=== PATIENT | female | born 1995 | race Caucasian/White ===

== ENCOUNTER 2021-02-15 13:24 | Outpatient (CLI) | payer OTHER, SELFPAY ==
[2021-02-15 14:14] LABS: Beta HCG Quantitative < 2.39 mIU/ML
== END 2021-02-15 13:25 | disposition home or self-care (01) ==
PROVIDERS: PCP Obstetrics & Gynecology Gynecology; Visit Provider Obstetrics & Gynecology Gynecology
DX: N91.2 Amenorrhea, unspecified (principal)
CPT/HCPCS: 36415; 84702

== ENCOUNTER 2021-07-11 10:17 | Outpatient (RCR) | payer OTHER, SELFPAY ==
[2021-07-11] MEDS: RHO(D) IMMUNE GLOBULIN 300 MCG/2 ML SYRINGE IM (17:20)
== END 2021-10-08 23:59 | disposition home or self-care (01) ==
LOC: ANHLAB 10:17
PROVIDERS: PCP Obstetrics & Gynecology Gynecology; Visit Provider Obstetrics & Gynecology Gynecology
DX: Z29.13 Encounter for prophylactic Rho(D) immune globulin (principal); O36.0190 Maternal care for anti-D [Rh] antibodies, unspecified trimester, not applicable or unspecified; Z3A.00 Weeks of gestation of pregnancy not specified
CPT/HCPCS: 36415; 85461; 90384; 96372; J2790

== ENCOUNTER 2021-09-19 14:14 | Outpatient (RCR) | payer OTHER, SELFPAY ==
[2021-09-18 10:05] LABS: Hematocrit 37.2 % (37.0-47.0); Hemoglobin 12.9 g/dL (12.0-15.0)
[2021-09-18 10:16] LABS: Glucose 1 Hour PP 50gm Dose 109 mg/dL
[2021-09-18 10:58] LABS: HIV 1/2 Ab P24 Ag Result Negative (Negative)
[2021-09-18 12:02] LABS: Vitamin D 25 Hydroxy 69.6 ng/mL
[2021-09-19] MEDS: RHO(D) IMMUNE GLOBULIN 300 MCG/2 ML SYRINGE IM (09:38)
== END 2021-09-19 15:00 | disposition home or self-care (01) ==
LOC: ANHLAB 14:14
PROVIDERS: PCP Obstetrics & Gynecology Gynecology; Visit Provider Nurse Practitioner
DX: Z11.4 Encounter for screening for human immunodeficiency virus [HIV] (principal); Z29.13 Encounter for prophylactic Rho(D) immune globulin; O36.0190 Maternal care for anti-D [Rh] antibodies, unspecified trimester, not applicable or unspecified; Z3A.00 Weeks of gestation of pregnancy not specified
CPT/HCPCS: 36415; 82306; 82947; 85014; 85018; 85461; 86703; 86880; 86902; 90384; 96372; G0432; J2790

== ENCOUNTER 2021-11-19 12:40 | Observation (INO) | payer OTHER, SELFPAY ==
[2021-11-19] VITALS (33 sets, daily range): BP systolic 104–134; BP diastolic 66–89; PULSE 95–122; TEMP 37.1; O2SAT 94–100; BMI 33.1
--- NOTE | 2021-11-19 12:40 | PC.NURSE ---
Pt came to desk stating she is afraid she might have COVID. Placed in droplet isolation as a PUI for COVID.
--- NOTE | 2021-11-19 13:25 | PC.NURSE ---
Dr. Michaels informed of pt's c/o sneezing and runny nose yesterday that progressed to a headache before bed and N&V through the night. Pt also c/o resting heart rate at 120 at times- currently 110-120, afebrile, and BP 134/89. Orders received.
[2021-11-19] MEDS: ONDANSETRON HCL ODT 4 MG TABLET PO (13:47)
--- NOTE | 2021-11-19 13:50 | OBADM ---
This patient, Yin Alfaro, admitted to the OB room 115 for observation. Patient/family oriented to hospital policies and general routines including ID bracelet, bed and alarms, visiting hours, pain management, procedures, bathroom and other care routines, personal items, smoking policy, room service/diet, and visiting hours. Patient/Family are encouraged to report perceived risks to care and to ask questions if they do not understand what they are told or what they should do.
[2021-11-19 13:53] LABS: Basophils Percent Auto 0.3 % (0.2-1.2); Eosinophils Percent Auto 0.3 % (0-4.4); Hematocrit 32.3 % (37.0-47.0); Hemoglobin 11.6 g/dL (12.0-15.0); Immature Granulocyte Percent A 0.9 % (0-0.5); Lymphocytes Absolute Auto 1.05 K/mm3 (0.9-3.2); Lymphocytes Percent Auto 9.7 % (18.3-44.2); Mean Corpuscular HGB Conc 35.9 g/dl (32-36); Mean Platelet Volume 11.2 fl (7.4-10.4); Monocytes Absolute Auto 0.9 K/mm3 (0.1-0.6); Monocytes Percent Auto 7.9 % (2.6-8.5); Neutrophils Absolute Auto 8.8 K/mm3 (1.3-6.7); Neutrophils Percent Auto 80.9 % (45.5-73.1); Platelet Count Result 170 k/mm3 (150-375); Red Blood Count 3.63 M/mm3 (4.2-5.4); Red Cell Distribution Width 12.5 % (11.5-14.5); White Blood Count 10.9 K/mm3 (4.5-10.0)
[2021-11-19 14:04] LABS: Alanine Aminotransferase 15 U/L (6-35); Albumin Level 3.5 g/dL (3.5-5.1); Alkaline Phosphatase 111 U/L (38-126); Anion Gap 10 mmol/L (8-16); Aspartate Amino Transferase 19 U/L (14-36); Bilirubin,Total 0.6 mg/dL (0.2-1.3); Blood Urea Nitrogen 6 mg/dL (7-17); Carbon Dioxide 19 mmol/L (22-30); Chloride 104 mmol/L (98-107); Estimated Glomerular Filt Rate > 60; Glucose 102 mg/dL (65-110); Potassium 3.5 mmol/L (3.4-5.0); Sodium 133 mmol/L (137-145)
[2021-11-19 14:29] LABS: SARS-CoV-2 RNA PCR Negative
[2021-11-19 14:31] LABS: Appearance Urine Clear (Clear); Bilirubin Urine Negative (Negative); Color Urine Yellow (Yellow); Glucose Urine UA Negative (Negative); Ketones Urine Negative (Negative); Leukocyte Esterase Ur Negative LEU/UL (Negative); Nitrate Urine Negative (Negative); Protein Urine Negative (Negative); Specific Grav Ur 1.015 (1.001-1.035); Urobilinogen Urine 0.2 mg/dL (<2.0)
[2021-11-19 14:33] LABS: Total Protein Urine Random 14 mg/dL; Ur Ttl Prot Creatinine Ratio 0.21 mg/mg (0-0.20)
[2021-11-19 14:36] LABS: Bacteria Urine Trace /hpf; Mucus Urine Rare /lpf; RBC Urine 0-2 /hpf (0-2); Squamous Epithelial Cell Urine Few /hpf (Few); WBC Urine 0-3 /hpf
[2021-11-19 14:39] LABS: Add Urine Microscopic? YES; Blood Urine Trace-Intact (Negative)
[2021-11-19] MEDS: ACETAMINOPHEN 500 MG TABLET 1000 MG PO (15:28)
--- NOTE | 2021-11-25 08:29 | PM.OBTRLD ---
OB - Triage/Final Diagnosis Visit Information Reason for evaluation: other (nausea, vomiting, dehydration) Comments/Additional reasons for admission: I have assessed the risk for this patient, Yin Alfaro, and determined that she would benefit from observation care. Evaluation Laboratory results: Laboratory Tests 11/19/21 11/19/21 11/19/21 13:42 13:42 13:42 WBC 10.9 H RBC 3.63 L Hgb 11.6 L Hct 32.3 L MCV 89.0 MCH 32.0 MCHC 35.9 RDW 12.5 Plt Count 170 MPV 11.2 H Immature Gran % (Auto) 0.9 H Neut % (Auto) 80.9 H Lymph % (Auto) 9.7 L [place] % (Auto) 7.9 Eos % (Auto) 0.3 Baso % (Auto) 0.3 Lymph # (Auto) 1.05 [place] # (Auto) 0.9 H Eos # (Auto) 0.0 Baso # (Auto) 0.0 Abs Immat Gran (auto) 0.10 H Absolute Neuts (auto) 8.8 H Absolute Nucleated RBC 0.0 Nucleated RBC % 0.0 Sodium Potassium Chloride Carbon Dioxide Anion Gap BUN Creatinine Estim Creat Clear Calc Estimated GFR Glucose Uric Acid Calcium Total Bilirubin AST ALT Alkaline Phosphatase Total Protein Albumin Urine Color Yellow Urine Appearance Clear Urine pH 7.0 Ur Specific [place] 1.015 Urine Protein Negative Urine Glucose (UA) Negative Urine Ketones Negative Ur Blood (Man) Trace-intact Urine Nitrate Negative Urine Bilirubin Negative Urine Urobilinogen 0.2 Leukocyte Esterase Rfl Negative Urine RBC 0-2 Urine WBC 0-3 Ur Squamous Epith Cells Few Urine Bacteria Trace Urine Mucus Rare U Random Total Protein 14 Urine Creatinine 68.0 Protein/Creat Ratio 2 0.21 H SARS-CoV-2 RNA (RT-PCR) 11/19/21 11/19/21 13:42 13:42 WBC RBC Hgb Hct MCV MCH MCHC RDW Plt Count MPV Immature Gran % (Auto) Neut % (Auto) Lymph % (Auto) [place] % (Auto) Eos % (Auto) Baso % (Auto) Lymph # (Auto) [place] # (Auto) Eos # (Auto) Baso # (Auto) Abs Immat Gran (auto) Absolute Neuts (auto) Absolute Nucleated RBC Nucleated RBC % Sodium 133 L Potassium 3.5 Chloride 104 Carbon Dioxide 19 L Anion Gap 10 BUN 6 L Creatinine 0.60 L Estim Creat Clear Calc Not Reportable Estimated GFR > 60 Glucose 102 Uric Acid 5.0 Calcium 9.0 Total Bilirubin 0.6 AST 19 ALT 15 Alkaline Phosphatase 111 Total Protein 7.0 Albumin 3.5 Urine Color Urine Appearance Urine pH Ur Specific [place] Urine Protein Urine Glucose (UA) Urine Ketones Ur Blood (Man) Urine Nitrate Urine Bilirubin Urine Urobilinogen Leukocyte Esterase Rfl Urine RBC Urine WBC Ur Squamous Epith Cells Urine Bacteria Urine Mucus U Random Total Protein Urine Creatinine Protein/Creat Ratio 2 SARS-CoV-2 RNA (RT-PCR) Negative
== END 2021-11-19 15:59 | disposition home or self-care (01) ==
PROVIDERS: Admitting Provider Obstetrics & Gynecology Gynecology; PCP Family Medicine; Visit Provider Obstetrics & Gynecology Gynecology
DX: O99.283 Endocrine, nutritional and metabolic diseases complicating pregnancy, third trimester (principal); O21.9 Vomiting of pregnancy, unspecified; E86.0 Dehydration; Z3A.34 34 weeks gestation of pregnancy; Z20.822 Contact with and (suspected) exposure to COVID-19
CPT/HCPCS: 36415; 80053; 81001; 82570; 84156; 84550; 85025; A9270; C9803; G0378; G0379; U0003; U0005

== ENCOUNTER 2021-11-20 16:12 | Outpatient (CLI) | payer OTHER, SELFPAY ==
[2021-11-20 16:27] VITALS: BMI 33.6
[2021-11-20 17:44] LABS: Collection Time Urine 24 HOURS
[2021-11-20 17:45] LABS: Total Volume 24 Hour Urine 1700 ml
[2021-11-20 17:46] LABS: Patient Weight 208 Lbs; Total Volume 24 Hour Urine 1700 ml
[2021-11-20 17:54] LABS: Creatinine Clearance Urine 161.6 ml/min (75-125); Creatinine Urine 96.2 mg/dL; Total Protein Urine 24 Hr 289 mg/24hr (28-141); Total Protein Urine Random 17 mg/dL
== END 2021-11-20 16:13 | disposition home or self-care (01) ==
LOC: ANHOBOP 16:25
PROVIDERS: PCP Family Medicine; Visit Provider Obstetrics & Gynecology Gynecology
DX: O13.9 Gestational [pregnancy-induced] hypertension without significant proteinuria, unspecified trimester (principal); Z3A.00 Weeks of gestation of pregnancy not specified
CPT/HCPCS: 81050; 82575; 84156

== ENCOUNTER → 2021-11-27 13:32 | Outpatient (CLI) | payer OTHER, SELFPAY ==
--- NOTE | ~2021-11-27 | US_ITS ---
EXAMINATION: US OB follow up, US umbilical doppler DATE: 11/27/2021 14:07 INDICATION: Preeclampsia during third trimester TECHNIQUE: Real-time ultrasound of the pelvis was performed. The interpreting radiologist was not pre sent for the study. COMPARISON: None. FINDINGS: There is a single living fetus in vertex presentation. The placenta is anterior. card iac activity and movement are noted. heart rate is 127 beats per minute (bpm). The amniot ic fluid index is 17.3 cm which is normal. Umbilical artery pulsed Doppler demonstrates peak systolic to end-diastolic velocity ratios (S/D rati os) of 2.4 and 3.2 near the fetus, 3.1 and 3.1 in the mid cord, and 2.9 and 3.0 near the placenta. The following biometric data were obtained: Biparietal diameter (BPD): 9.5 cm; head circumference (HC): 32.9 cm; abdominal circumference (AC): 33 .7 cm; femur length (FL): 7.3 cm. These measurements are concordant. Estimated weight is 3277 g +/- 491 g, which correlates with the 90th percentile when 12/25/2021 is used as estimated date of delivery. As single measurements, these parameters are each equal to the following estimated gestational ages w ith ranges of +/- 2 standard deviations: BPD: 38 weeks 4 days +/- 3 weeks 1 days. HC: 37 weeks 3 days +/- 2 weeks 5 days. AC: 37 weeks 5 days +/- 3 weeks 0 days. FL: 37 weeks 3 days +/- 3 weeks 1 days. estimated gestational age based solely on measurements from this exam is 37 weeks 6 days +/- 2 weeks 5 days. IMPRESSION: 1. Single living fetus in vertex presentation. 2. Normal amniotic fluid index. 3. Normal umbilical artery Doppler ratios. 4. Estimated weight is 3277 g +/- 491 g, which correlates with the 90th percentile when 12/26/19 is used as estimated date of delivery. Reviewed, dictated and finalized at location A. IMPRESSION: 1. Single living fetus in vertex presentation. 2. Normal amniotic fluid index. 3. Normal umbilical artery Doppler ratios. 4. Estimated weight is 3277 g +/- 491 g, which correlates with the 90th p ercentile when 12/25/2021 is used as estimated date of delivery.
== END ==
PROVIDERS: PCP Obstetrics & Gynecology Gynecology; Visit Provider Obstetrics & Gynecology Gynecology
DX: O14.03 Mild to moderate pre-eclampsia, third trimester (principal); Z3A.37 37 weeks gestation of pregnancy
CPT/HCPCS: 76816; 76820

== ENCOUNTER 2021-12-03 05:51 | Inpatient (IN) | payer OTHER, SELFPAY ==
[2021-12-03] VITALS (103 sets, daily range): BP systolic 103–172; BP diastolic 51–137; PULSE 66–254; TEMP 36.2–37.4; O2SAT 97–100; BMI 33.3
[2021-12-03 06:50] LABS: Basophils Percent Auto 0.2 % (0.2-1.2); Eosinophils Absolute Auto 0.1 K/mm3 (0-0.3); Eosinophils Percent Auto 1.2 % (0-4.4); Hematocrit 32.2 % (37.0-47.0); Hemoglobin 11.5 g/dL (12.0-15.0); Immature Granulocyte Absolute 0.12 K/mm3 (0.00-0.031); Immature Granulocyte Percent A 1.2 % (0-0.5); Lymphocytes Absolute Auto 1.73 K/mm3 (0.9-3.2); Lymphocytes Percent Auto 17.9 % (18.3-44.2); Mean Corpuscular HGB Conc 35.7 g/dl (32-36); Mean Corpuscular Hemoglobin 31.4 pg (26-34); Mean Platelet Volume 11.6 fl (7.4-10.4); Monocytes Absolute Auto 0.8 K/mm3 (0.1-0.6); Monocytes Percent Auto 7.9 % (2.6-8.5); Neutrophils Absolute Auto 6.9 K/mm3 (1.3-6.7); Neutrophils Percent Auto 71.6 % (45.5-73.1); Platelet Count Result 172 k/mm3 (150-375); Red Blood Count 3.66 M/mm3 (4.2-5.4); Red Cell Distribution Width 12.4 % (11.5-14.5); White Blood Count 9.6 K/mm3 (4.5-10.0)
--- NOTE | 2021-12-03 07:19 | LDADM ---
This patient, Yin Alfaro, was admitted to Labor/Delivery/Recovery 103 on 12/03/21 at 05:51. Plans for labor, pain management and were discussed with patient. Patient/family oriented to hospital policies and general routines including ID bracelet, bed and alarms, visiting hours, pain management, procedures, bathroom and other care routines, personal items, smoking policy, room service/diet and guest tray routines, infant security routines, and visiting hours. Patient/Family are encouraged to report perceived risks to care and to ask questions if they do not understand what they are told or what they should do. See OBIX for further documentation.
[2021-12-03] MEDS: miSOPROStol 25 MCG TABLET VAGINAL (07:41)
[2021-12-03 07:45] LABS: Alanine Aminotransferase 14 U/L (6-35); Albumin Level 3.5 g/dL (3.5-5.1); Alkaline Phosphatase 129 U/L (38-126); Anion Gap 8 mmol/L (8-16); Aspartate Amino Transferase 20 U/L (14-36); Bilirubin,Total 0.5 mg/dL (0.2-1.3); Blood Urea Nitrogen 8 mg/dL (7-17); Calcium 8.9 mg/dL (8.4-10.2); Carbon Dioxide 22 mmol/L (22-30); Chloride 108 mmol/L (98-107); Estimated CRCL calculation 142 ml/min; Estimated Glomerular Filt Rate > 60; Glucose 88 mg/dL (65-110); Potassium 3.7 mmol/L (3.4-5.0); Sodium 138 mmol/L (137-145); Uric Acid 5.7 mg/dL (2.5-7.5)
--- NOTE | 2021-12-03 07:50 | WPDOBADMIT ---
Obstetrics - Admit Note Admission Note: record reviewed. No pertinent additions to the history and/or any subsequent changes in the physical findings that are not consistent with the expected course of the were found. Additions to the history and/or subsequent changes in the physical findings follow. None.
--- NOTE | 2021-12-03 07:51 | PM.OBPNLAB ---
Pain Control Date/time seen: 12/03/21 07:51 Pain control: tolerating well Comments: Rarely bishnu. Pelvic Exam Comments: Chua score 3 per RN's exam. Contractions Monitor mode: External Contraction pattern: Irregular Contraction phase: Resting Status status: Category l Assessment and Plan Assessment: induction ongoing Plan: continuous present management Comments: Misoprostol placed recently by RN for cervical ripening. Discussed plan of care. Plan to evaluate for safety of AROM at next exam.
[2021-12-03] MEDS: LACTATED RINGERS 1,000 ML 125 ML IV CONT ×4 (11:36→21:57)
[2021-12-03] MEDS: OXYTOCIN 30 UNITS/NS 500 ML 30 UNITS/500 ML BAG 6 UNITS IV CONT (11:37)
[2021-12-03 12:10] LABS: Rapid Plasma Reagin Non-Reactive (NonReactive)
--- NOTE | 2021-12-03 12:11 | PM.OBPNLAB ---
Pain Control Date/time seen: 12/03/21 12:11 Pain control: tolerating well Pelvic Exam Dilation (cm): 3 Effacement (%): 75 station: -2 Amniotic membrane status: Intact Comments: AROM Contractions Monitor mode: External Contraction frequency: 3 (2-5, irregular pattern) Contraction pattern: Irregular Contraction phase: Resting Contraction intensity: Moderate Status status: Category l Assessment and Plan Assessment: induction ongoing Plan: continuous present management Comments: Discussed plan of care with patient and her partner. Amniotomy risks and benefits discussed. Patient is agreeable to proceeding with amniotomy. head very well applied to cervix. AROM performed with return of small amount of clear fluid. Plan to increase Pitocin as needed to achieve adequate contraction pattern. Yin is tolerating early labor very well, and only has minimal cramps at this point. She plans an epidural at some point for pain relief during labor. Anticipate vaginal .
[2021-12-03 12:42] LABS: HIV 1/2 Ab P24 Ag Result Negative (Negative)
--- NOTE | 2021-12-03 14:44 | WPDANESEPP ---
Anes - Eval Pre Procedure Procedure: Labor Epidural Date/Time: 12/03/21 14:44 Surgeon: Xenia Pre Op Diagnosis: IOL Patient Data Age: 26 Gender: F Height: 1.69 m Weight: 95 kg Last Vital Signs Temp 36.2 C L 12/03/21 14:00 Pulse 85 12/03/21 14:30 BP 125/87 12/03/21 14:30 Pulse Ox 98 12/03/21 14:43 O2 Del Method Room Air 12/03/21 07:17 Allergies Allergy/AdvReac Type Severity Reaction Status Date / Time No Known Allergies Allergy Verified 11/19/21 13:44 Home Medications Medication Instructions Recorded Confirmed Type ergocalciferol (vitamin D2) 1,250 50,000 unit PO WEEKLY 11/19/21 12/03/21 History mcg (50,000 unit) capsule metoclopramide HCl 10 mg tablet 10 mg PO Q6H PRN Nausea 11/19/21 12/03/21 History vit no.95-ferrous 1 tablet PO DAILY 11/19/21 12/03/21 History fumarate 28 mg-folic acid 800 mcg tablet () calcium-magnesium 750 mg-465 mg tablet PO 12/02/21 History tablet Laboratory Tests 12/03/21 12/03/21 12/03/21 06:31 06:31 06:31 WBC 9.6 K/mm3 K/mm3 (4.5-10.0) RBC 3.66 M/mm3 L M/mm3 (4.2-5.4) Hgb 11.5 g/dL L g/dL (12.0-15.0) Hct 32.2 % L % (37.0-47.0) MCV 88.0 fl fl (80-100) MCH 31.4 pg pg (26-34) MCHC 35.7 g/dl g/dl (32-36) RDW 12.4 % % (11.5-14.5) Plt Count 172 k/mm3 k/mm3 (150-375) MPV 11.6 fl H fl (7.4-10.4) Immature Gran % (Auto) 1.2 % H % (0-0.5) Neut % (Auto) 71.6 % % (45.5-73.1) Lymph % (Auto) 17.9 % L % (18.3-44.2) [place] % (Auto) 7.9 % % (2.6-8.5) Eos % (Auto) 1.2 % % (0-4.4) Baso % (Auto) 0.2 % % (0.2-1.2) Lymph # (Auto) 1.73 K/mm3 K/mm3 (0.9-3.2) [place] # (Auto) 0.8 K/mm3 H K/mm3 (0.1-0.6) Eos # (Auto) 0.1 K/mm3 K/mm3 (0-0.3) Baso # (Auto) 0.0 K/mm3 K/mm3 (0.0-0.1) Abs Immat Gran (auto) 0.12 K/mm3 H K/mm3 (0.00-0.031) Absolute Neuts (auto) 6.9 K/mm3 H K/mm3 (1.3-6.7) Absolute Nucleated RBC 0.0 K/mm3 K/mm3 (0.0-0.012) Nucleated RBC % 0.0 % % (0.0-0.2) Sodium Potassium Chloride Carbon Dioxide Anion Gap BUN Creatinine Estim Creat Clear Calc Estimated GFR Glucose Uric Acid Calcium Total Bilirubin AST ALT Alkaline Phosphatase Total Protein Albumin RPR Non-reactive (NonReactive) HIV 1&2 Ab/P24 Ag 4thGn Blood Type O Negative Antibody Screen Negative 12/03/21 12/03/21 07:12 11:35 WBC RBC Hgb Hct MCV MCH MCHC RDW Plt Count MPV Immature Gran % (Auto) Neut % (Auto) Lymph % (Auto) [place] % (Auto) Eos % (Auto) Baso % (Auto) Lymph # (Auto) [place] # (Auto) Eos # (Auto) Baso # (Auto) Abs Immat Gran (auto) Absolute Neuts (auto) Absolute Nucleated RBC Nucleated RBC % Sodium 138 mmol/L mmol/L (137-145) Potassium 3.7 mmol/L mmol/L (3.4-5.0) Chloride 108 mmol/L H mmol/L (98-107) Carbon Dioxide 22 mmol/L mmol/L (22-30) Anion Gap 8 mmol/L mmol/L (8-16) BUN 8 mg/dL mg/dL (7-17) Creatinine 0.60 mg/dL L mg/dL (0.7-1.0) Estim Creat Clear Calc 142 ml/min ml/min Estimated GFR > 60 (59 - ) Glucose 88 mg/dL mg/dL (65-110) Uric Acid 5.7 mg/dL mg/dL (2.5-7.5) Calcium 8.9 mg/dL mg/dL (8.4-10.2) Total Bilirubin 0.5 mg/dL mg/dL (0.2-1.3) AST 20 U/L U/L (14-36) ALT 14 U/
--- NOTE | 2021-12-03 17:18 | PM.OBPNLAB ---
Pain Control Date/time seen: 12/03/21 17:16 Pain control: tolerating well and epidural Pelvic Exam Comments: No exam at this time. Contractions Monitor mode: External Contraction frequency: 2 (2-5, irregular pattern) Contraction duration: 60 Contraction pattern: Regular Contraction phase: Resting Contraction intensity: Moderate Status status: Category l Assessment and Plan Pitocin rate (mU/min): 12 Assessment: induction ongoing Plan: continuous present management Comments: Yin is resting on her right side. Peanut ball between her knees. FHTs reassuring, ctx pattern regular. Discussed POC. If minimal cervical change with next exam, recommend IUPC. Anticipate vaginal .
[2021-12-03] MEDS: ONDANSETRON INJ 4 MG/2 ML VIAL IV PUSH (17:44)
--- NOTE | 2021-12-03 22:25 | PM.OBPNLAB ---
Pain Control Date/time seen: 12/03/21 22:25 Pain control: tolerating well and epidural Pelvic Exam Comments: Recent SVE by RN 9cm. Contractions Monitor mode: External Contraction pattern: Regular Status status: Category ll Assessment and Plan Comments: FHTs with prolonged deceleration. Pt repositioned with no resolution. Pitocin discontinued. Repositioned to hands and knees and FHTs returned to baseline with moderate variability. Yin remained on her hands and knees for about 20 minutes with RN and CNM present at pt's side continuously. Then repositioned to R tilt with L leg in stirrup. Feeling intermittent rectal pressure with contractions. Anticipate vaginal .
[2021-12-04] VITALS (12 sets, daily range): BP systolic 115–139; BP diastolic 64–92; PULSE 73–111; RESP 16–18; TEMP 36.4–37.1; O2SAT 97–98
--- NOTE | 2021-12-04 00:27 | PM.OBPRVD ---
OB - Delivery Note Procedure Delivery date: 12/03/21 Procedure: Events: Preeclampsia w/o severe features Induction method: Per Misoprostol Protocol Delivery augmentation: Rupture of Membranes and Pitocin Delivery monitor: External FHT, External Uterine and Internal Uterine Route of delivery: Episiotomy description: None Laceration Description: Vaginal (1st degree) Delivery repair: vicryl Specimen: Yes Quantitative Blood Loss (ml): 500 Anesthesia type: Epidural Disposition: Floor Baby Date of : 12/03/21 Time of : 23:57 Weeks of gestation at delivery: 36 (36w6d) Infant gender: Male Weight (pounds): 7 Weight (ounces): 12 presentation: vertex (Compound presentation) position: Left Occiput Anterior (with loose nuchal cord x1) Placenta delivery description: Spontaneous (trailing membranes) Cord Vessel Description: 3 Vessels score one minute: 7 score five minutes: 9 Narrative: Yin progressed to complete dilation and pushed very well with contractions. She brought the head to a crown. The head delivered in the LOUANN position and a compound presentation with the left hand/arm was noted. There was a loose nuchal cord. With the next pushing effort, she delivered the remainder of the infant. The infant was then placed skin to skin on the maternal abdomen. Delayed cord clamping x 60 seconds. The cord was then doubly clamped and cut.
--- NOTE | 2021-12-04 00:33 | PM.OBDSVD ---
DS: Admitting Diagnosis Discharge Date 12/05/21 Admitting Diagnosis IUP Preeclampsia Induction of labor DS: Discharge Diagnosis Discharge Diagnosis Plan OB - DS: Summary Hospital Course Hospital Course: Uncomplicated OB Procedures : None OB Procedures Intrapartum: Spontaneous Vag Delivery OB Procedures: : None Peripartum Data Delivery Method: Natural Vaginal Laceration Description: Vaginal - 1st Degree Episiotomy description: None complications: none Time Spent with Patient Time attestation: Total time spent providing and/or coordinating discharge services: DS: Data Data Completed and Pending Pending studies at discharge: Pending at discharge 12/03/21 08:11 Surgical [PTH] Routine Labs on day of discharge: Labs from last 24 hours 12/03/21 12/03/21 12/03/21 11:35 07:12 06:31 WBC RBC Hgb Hct MCV MCH MCHC RDW Plt Count MPV Immature Gran % (Auto) Neut % (Auto) Lymph % (Auto) [place] % (Auto) Eos % (Auto) Baso % (Auto) Lymph # (Auto) [place] # (Auto) Eos # (Auto) Baso # (Auto) Abs Immat Gran (auto) Absolute Neuts (auto) Absolute Nucleated RBC Nucleated RBC % Sodium 138 Potassium 3.7 Chloride 108 H Carbon Dioxide 22 Anion Gap 8 BUN 8 Creatinine 0.60 L Estim Creat Clear Calc 142 Estimated GFR > 60 Glucose 88 Uric Acid 5.7 Calcium 8.9 Total Bilirubin 0.5 AST 20 ALT 14 Alkaline Phosphatase 129 H Total Protein 7.0 Albumin 3.5 RPR HIV 1&2 Ab/P24 Ag 4thGn Negative Blood Type O Negative Antibody Screen Negative 12/03/21 12/03/21 06:31 06:31 WBC 9.6 RBC 3.66 L Hgb 11.5 L Hct 32.2 L MCV 88.0 MCH 31.4 MCHC 35.7 RDW 12.4 Plt Count 172 MPV 11.6 H Immature Gran % (Auto) 1.2 H Neut % (Auto) 71.6 Lymph % (Auto) 17.9 L [place] % (Auto) 7.9 Eos % (Auto) 1.2 Baso % (Auto) 0.2 Lymph # (Auto) 1.73 [place] # (Auto) 0.8 H Eos # (Auto) 0.1 Baso # (Auto) 0.0 Abs Immat Gran (auto) 0.12 H Absolute Neuts (auto) 6.9 H Absolute Nucleated RBC 0.0 Nucleated RBC % 0.0 Sodium Potassium Chloride Carbon Dioxide Anion Gap BUN Creatinine Estim Creat Clear Calc Estimated GFR Glucose Uric Acid Calcium Total Bilirubin AST ALT Alkaline Phosphatase Total Protein Albumin RPR Non-reactive HIV 1&2 Ab/P24 Ag 4thGn Blood Type Antibody Screen Discharge Plan Discharge Attending physician on discharge: Nuvia Michaels Consulting providers: Lou Schwab Discharging Clinician: Nuvia Michaels Anticipated Discharge Date/Time: 12/05/21 07:47 Patient Disposition: Home, Self-Care Activity: may shower and pelvic rest Diet: regular Discharge Instructions: Education: Mom and Baby Guide Given to: Mother Follow-Up: Call your delivering provider's office for an appointment to be seen in: 1 Week Mom and baby should come to the [facility] for the follow-up appointment. Appointment Date/Time: December 07, 2021 at 10:00 am What to expect at your follow-up visit: Blood Pressure Check Call [phone] if you are unable to keep your appointment time. BREAST CARE: * Wear a snug supportive bra. * For engorgement discomfort: Breast Feeding: * Apply warm moist washcloths * Express milk as needed to relieve engorgement * Wear loose clothing Bottle Feeding: * May apply ice packs * For sore nipples: * Identify correct latch-on * Apply warm moist washcloths before and after nursing * Air dry nipples after nursing * May apply Lansinoh cream to nipples PERINEAL CARE: * Until bleeding stops, use your sophy bottle after urinating * Change your pad frequently throughout the day * You may take sitz baths
[2021-12-04] MEDS: OXYTOCIN 30 UNITS/NS 500 ML 30 UNITS/500 ML BAG 125 UNITS IV CONT (00:45)
[2021-12-04] MEDS: IBUPROFEN 600 MG TABLET PO ×3 (01:52→19:11)
[2021-12-04] MEDS: WITCH HAZEL 40 PADS 1 PAD TOPICAL (01:53)
[2021-12-04] MEDS: BENZOCAINE 20% AER SPR (*SP) 56 GM CAN 1 SPRAY TOPICAL (01:53)
--- NOTE | 2021-12-04 02:55 | PC.NURSE ---
Patient transferred to post room #278 per wheelchair from labor and delivery. Support person present. Oriented to unit, room, information board, rooming in, admission packet and security measures. Patient verbalizes understanding.
--- NOTE | 2021-12-04 07:48 | P.PNOB_ITS ---
OB - PN: Subj Subjective Date/time seen: 12/04/21 07:48 Patient comments: pain well controlled [place] baby status: doing well ( fair. Using nipple shield. ) feeding status: exclusively breast feeding Narrative: Resting in bed. Alert and oriented, fatigued. Spouse present and supportive. Infant in nursery for peds assessment. OB - PN: Obj Data Labs CBC & Chem 7: 12/03/21 06:31 12/03/21 07:12 Labs: Laboratory Results - last 24 hr 12/03/21 12/03/21 12/03/21 06:31 06:31 11:35 RPR Non-reactive HIV 1&2 Ab/P24 Ag 4thGn Negative Blood Type O Negative Antibody Screen Negative OB - PN A/P Plan day: 1 Plan: routine care Comments: Begin breast pumping. Time Spent With Patient Time: Total time spent is greater than 50% in coordination of care (as documented) at patient's floor/unit and/or counseling patient: Review of Systems Review of Systems: All systems reviewed & are unremarkable except as noted in HPI and below Exam Narrative: Alert and oriented. Mood is pleasant and cooperative. Urinating without difficulty. Denies passing any large clots. Perineum with some edema but WNL. Const: General: no acute distress Orientation/consciousness: patient oriented x3 Limitations: no limitations Resp: Effort & Inspection: normal respiratory effort Auscultation: clear to auscultation bilaterally Cardio: Rate: regular rate GI: Inspection: normal to inspection Neuro: General: patient oriented x3 Extrem: General: normal to inspection Psych: Appearance: grossly normal Mental Status: mental status grossly normal Affect: normal affect Thought process: Normal thought process present
--- NOTE | 2021-12-04 08:46 | WPDANLDPN2 ---
Anes-Prog Note L&D Date/Time: 12/04/21 08:46 Comfortable throughout: labor and delivery Neuraxial method: epidural Epidural/Spinal procedure site: clean & non-tender Neuro status: Neuro function grossly intact. Cardiovascular status: normal Respiratory status: normal Airway patency: baseline Mental status: baseline Post-Op hydration status: normal Vital Signs: Last Vital Signs Temp 36.5 C 12/04/21 03:00 Pulse 73 12/04/21 03:00 Resp 18 12/04/21 03:00 BP 123/72 12/04/21 03:00 Pulse Ox 98 12/03/21 23:53 O2 Del Method Room Air 12/03/21 07:17 Pain score (VAS): 2 I/O: Intake & Output 12/03/21 12/04/21 12/04/21 23:59 07:59 15:59 Intake Total 1000 2000 Output Total 78 Balance 1000 1922 Patient feedback: Patient satisfied with anesthetic care.
[2021-12-04] MEDS: DOCUSATE SODIUM 100 MG CAPSULE PO (11:35)
[2021-12-04] MEDS: MULTIVIT/MIN/PREN/FOL AC/IRON TABLET 1 TAB PO (11:35)
--- NOTE | 2021-12-04 13:16 | PC.NURSE ---
0900 RN called to assist with patient while working with another patient. RN referred patient care back to the primary RN. [phone] RN reported that the patient called for assistance with her 36 6/7 EGA infant. Introductions were made, then consulted with patient to assess needs related to . Mother led the conversation with her?plans to feed?her and the?experience so far. Mother states she has used a nipple shield to latch infant to the breast. Infant is has bruising. Mother works well with her with encouragement. Encouraged understanding of the benefits of skin to skin (unwrapping infant and placing vertically on her chest), responsive feeding and how to watch for early feeding signs, frequency of feeding on demand about every 8-12 times in 24 hours (every 2-3 hours), milk production, duration of feeding, signs of adequate intake/output and how to record on the feeding sheet. Reviewed positioning and ear, shoulder, hip alignment, supporting the breast, asymmetrical latch (off-center), and leading with the chin with a big open side gape. latched optimally to the right breast in football position. Education given to mother of how to visualize suck/swallow ratios and listen for drinking at the breast. was able to maintain latch without discomfort to mother. Infant latched at 1256 and was demonstrating effective at 1307. Nipple care reviewed with optimal latch and good positioning. Resources used to facilitate learning were used with the tool for teaching latch, hand expression, and mom/baby guide. Mother voiced understanding of responsive feedings, stimulating with skin to skin, hand expressed colostrum, massage touch, breast compression, talking to to encourage if it has been 2 -3 hours since the start of the last , to call if infant does not latch, wake up to breastfeed or if there is discomfort with . Resources provided for inpatient and outpatient services using a resource guide and mom/baby guide. Mother voiced understanding of information and will call if there is a request for assistance. Reported to primary RN.
[2021-12-04 13:40] LABS: Hematocrit 26.3 % (37.0-47.0); Hemoglobin 9.5 g/dL (12.0-15.0)
[2021-12-05] VITALS: BP 116/80
[2021-12-05 04:30] VITALS: BP 122/86
--- NOTE | 2021-12-05 07:30 | PC.NURSE ---
PT introductions made and plan of care discussed per post ,pain management, bottle feeding, daily care activities and pending discharge to home. PT and significant other both recipients of such instructions and no barriers to learning identified at this time. PT to received instructions via one to one discussion, mom baby care guide and demonstrations this shift. PT verbalized understanding of such care.
[2021-12-05 07:35] VITALS: BP 125/92; PULSE 87; RESP 20; TEMP 36.7; O2SAT 99
--- NOTE | 2021-12-05 07:47 | PM.OBPNVD ---
OB - PN: Subj Subjective Date/time seen: 12/05/21 07:47 Patient comments: no complaints and pain well controlled baby status: doing well OB - PN: Obj Data Labs CBC & Chem 7: 12/04/21 13:30 12/03/21 07:12 Labs: Laboratory Results - last 24 hr 12/04/21 13:30 Hgb 9.5 L Hct 26.3 L OB - PN A/P Plan day: 1 Plan: routine care, discharge home, follow up 6 weeks and other (plan POP for bc) Time Spent With Patient Time: Total time spent is greater than 50% in coordination of care (as documented) at patient's floor/unit and/or counseling patient: Exam : Bimanual exam- vagina & uterus: other (Uterus firm, nt @U)
[2021-12-05] MEDS: LANOLIN (LANSINOH) 7.5 GM CREAM 1 APPLIC TOPICAL (10:46)
[2021-12-05] MEDS: ACETAMINOPHEN 325 MG TABLET 650 MG PO ×2 (10:47→18:02)
[2021-12-05] MEDS: MULTIVIT/MIN/PREN/FOL AC/IRON TABLET 1 TAB PO (10:48)
[2021-12-05] MEDS: POLYSACCHARIDE IRON COMPLEX 150 MG CAPSULE PO ×2 (10:48→18:03)
[2021-12-05] MEDS: IBUPROFEN 600 MG TABLET PO ×2 (10:48→18:03)
[2021-12-05 10:49] VITALS: PULSE 87; RESP 20; O2SAT 99
[2021-12-05] MEDS: DOCUSATE SODIUM 100 MG CAPSULE PO ×2 (10:49→18:03)
[2021-12-05 12:30] VITALS: BP 126/86; PULSE 82; RESP 18; TEMP 36.6; O2SAT 100
--- NOTE | 2021-12-05 13:35 | PC.NURSE ---
[id number] Consulted with patient to assess needs related to . Mother led conversation with her experience with feeding baby so far. Mother works well with her infant with encouragement. Reviewed working with , breast, nipples and how to protect the nipples with an optimal deep latch, good positioning, and good hand washing. Encouraged understanding the benefits of skin to skin, responding to feeding cues, frequencies of feeding 8-12 times in 24 hours (approximately 2-3 hours), duration of feedings, milk production, intake/output feeding sheet and signs of adequate intake encouraging swallowing at the breast. Reviewed positioning and alignment, supporting breast, off-centered (asymmetrical latch) and leading with the chin with big open wide gape. Infant latched to the right breast in football position. Checked the mother's nipple after latched related to visualizing dimpling on infants cheek and mother stating it is hurting a bit. 2 out of the 3 latches the nipple was slightly misshaped and one latch it was elongated with tenderness improving over time. Reviewed suck, swallowing, deep latching to protect the nipple. Infant latched optimally to the left breast using football positioning. Infant maintained latch but required stimulation for actively drinking at the breast. Parents voiced understanding of how to detach, stimulate to wake, then optimally latch infant again to promote effectively not allowing their late- infant to rest at the breast instead of . Education given to mother of how to visualize suck/swallow ratios, listen for drinking at the breast, and breast compression. Infant was able to maintain latch without discomfort to mother. Nipple care reviewed with optimal latch and good positioning. Reviewed to have clean hands when touching the nipple and breast for hand expression and . Resources used to facilitate learning were used from the visual handout, tool, QR code to videos, and mom/baby guide. Parents voiced understanding of the education shared, calling for assistance if the does not latch or if there is discomfort with . Reported to the primary RN.
[2021-12-05] MEDS: RHO(D) IMMUNE GLOBULIN 300 MCG/2 ML SYRINGE IM (15:45)
[2021-12-05] MEDS: MEASLES,MUMPS,RUBELLA VACCINE 0.5 ML VIAL SUB-Q (18:03)
--- NOTE | 2021-12-05 18:30 | PC.NURSE ---
Pt received discharge instructions per protocol and verbalized understanding of such care
--- NOTE | 2021-12-05 19:05 | PC.NURSE ---
PT discharged to home ambulatory accompanied by spouse and and taken to waiting car. Follow up appts confirmed
== END 2021-12-05 19:05 | disposition home or self-care (01) | DRG 807 ==
LOC: ANHLDR 05:55 → ANHOB2 12-04 03:30
PROVIDERS: Advanced Practice Midwife; Admitting Provider Obstetrics & Gynecology Gynecology; PCP Family Medicine; Visit Provider Obstetrics & Gynecology Gynecology
DX: O14.04 Mild to moderate pre-eclampsia, complicating childbirth (principal); Z37.0 Single live birth; O32.6XX0 Maternal care for compound presentation, not applicable or unspecified; O69.81X0 Labor and delivery complicated by cord around neck, without compression, not applicable or unspecified; O13.4 Gestational [pregnancy-induced] hypertension without significant proteinuria, complicating childbirth; O76 Abnormality in fetal heart rate and rhythm complicating labor and delivery; O70.0 First degree perineal laceration during delivery; Z3A.36 36 weeks gestation of pregnancy
CPT/HCPCS: 36415; 80053; 84550; 85014; 85018; 85025; 85461; 86592; 86703; 86850; 86900; 86901; 88307; 90384; 90710; A9270; G0432; J2405; J2590; J2790; J2795; J7120

== ENCOUNTER 2023-04-08 16:04 | Outpatient (RCR) | payer BC, SELFPAY ==
[2023-04-10] MEDS: RHO(D) IMMUNE GLOBULIN 300 MCG/2 ML SYRINGE IM (12:49)
== END 2023-07-07 23:59 | disposition home or self-care (01) ==
LOC: ANHLAB 16:04
PROVIDERS: PCP Obstetrics & Gynecology Gynecology; Visit Provider Obstetrics & Gynecology Gynecology
DX: Z32.01 Encounter for pregnancy test, result positive (principal); Z29.13 Encounter for prophylactic Rho(D) immune globulin; O36.0110 Maternal care for anti-D [Rh] antibodies, first trimester, not applicable or unspecified; O26.851 Spotting complicating pregnancy, first trimester; Z3A.00 Weeks of gestation of pregnancy not specified
CPT/HCPCS: 36415; 85461; 86850; 86900; 86901; 90384; 96372; J2790

== ENCOUNTER → 2023-04-18 07:40 | Outpatient (CLI) | payer BC, SELFPAY ==
--- NOTE | ~2023-04-18 | US_ITS ---
Pelvic ultrasound. Clinical History: First trimester , establish dates and viability Technique: Realtime transabdominal and transvaginal scanning of the pelvis was performed. Color flow Doppler and Doppler spectral analysis were performed. Findings: The uterus is anteverted, and measures 9.5 x 4.5 x 5.5 cm. There is a probable early intrau terine gestational sac, with estimated gestational age of approximately 5 1/2 weeks given presence of yolk sac but no pole.. The right ovary measures 3.4 x 2.5 x 3.0 cm. No significant right ovarian or adnexal mass is seen. The left ovary measures 3.7 x 5.0 x 3.6 cm. No significant left ovarian or adnexal mass is seen. There is no evidence of free fluid in the cul de sac. Impression: Early intrauterine gestational sac with yolk sac but no pole, suggestive of an estimated gestat ional age of approximately 5 1/2 weeks. Reviewed, dictated and finalized at [facility]. L RUNNER Impression: Early intrauterine gestational sac with yolk sac but no pole, suggestive of an estimated gestational age of approximately 5 1/2 weeks.
== END ==
PROVIDERS: PCP Obstetrics & Gynecology Gynecology; Visit Provider Obstetrics & Gynecology Gynecology
DX: Z36.87 Encounter for antenatal screening for uncertain dates (principal); Z3A.00 Weeks of gestation of pregnancy not specified
CPT/HCPCS: 76817

== ENCOUNTER → 2023-04-24 14:17 | Outpatient (CLI) | payer BC, SELFPAY ==
--- NOTE | ~2023-04-24 | US_ITS ---
EXAMINATION: US OB transvaginal INDICATION: Viability TECHNIQUE: Sonography of the pelvis was performed by transabdominal and transvaginal techniques. COMPARISON: 04/18/2023. RESULT: Uterus: 9.4 x 4.4 x 6.0 cm. Anteverted. Homogenous myometrium. Intrauterine gestational sac: Single present. Mean Sac Diameter: Not measured. Yolk sac: 0.5 cm . Embryo: Single present. [place] rump length: 0.32 cm, corresponding gestational age 6 weeks, 0 days. Gestational heart rate: present 128 bpm. Subgestational hematoma: Absent . Right ovary: 3.2 x 2.0 x 2.2 cm. Vascular flow is present. No adnexal mass. Left ovary: 4.3 x 3.6 x 3.9 cm. Vascular flow is present. 2.2 cm simple cyst. 1.7 cm complex cyst, with internal reticulation, likely involuting corpus luteal cyst or small hemorrhagic cyst. Pelvis free fluid: None. IMPRESSION: Single, live intrauterine gestation. Estimated Gestational Age: 6 weeks, 0 days by crown rump length. NAZIA by ultrasound 12/13/2023. Reviewed, dictated and finalized at location K. PURSER IMPRESSION: Single, live intrauterine gestation. Estimated Gestational Age: 6 weeks, 0 days by crown rump length. NAZIA by ultras ound 12/13/2023.
== END ==
PROVIDERS: PCP Obstetrics & Gynecology Gynecology; Visit Provider Obstetrics & Gynecology Gynecology
DX: Z36.9 Encounter for antenatal screening, unspecified (principal); Z3A.01 Less than 8 weeks gestation of pregnancy
CPT/HCPCS: 76817

== ENCOUNTER 2023-07-14 15:54 | Outpatient (CLI) | payer BC, SELFPAY ==
--- NOTE | ~2023-07-14 | US_ITS ---
EXAMINATION: US OB /maternal detail DATE: 07/14/2023 16:56 INDICATION: anatomic survey. TECHNIQUE: Real-time ultrasound of the pelvis was performed. COMPARISON: Ultrasound 04/24/2023, 04/18/23 FINDINGS: There is a single living fetus in vertex presentation. The placenta is on the right, 4.4 cm from the cervix. The cervical length is 3.9 cm on transabdominal images, which is normal. heart rate is 141 beats per minute (bpm). The amniotic fluid volume is subjectively normal. The following biometric data were obtained: Biparietal diameter (BPD): 4.3 cm; head circumference (HC): 15.5 cm; abdominal circumference (AC): 12 .3 cm; femur length (FL): 2.5 cm. These measurements are concordant. Estimated weight is 215 g +/- 32 g, which correlates with the 66th percentile when 12/18/23 is us ed as estimated date of delivery. As single measurements, these parameters are each equal to the following estimated gestational ages: BPD: 19 weeks 0 days. HC: 18 weeks 3 days. AC: 18 weeks 0 days. FL: 17 weeks 4 days. estimated gestational age based solely on measurements from this exam is 19 weeks 2 days +/- 1 weeks 2 days. The cerebral ventricles, cerebellum, cisterna magna, nuchal fold, and visualized portions of the spin e are normal. The heart is normal. The diaphragm, stomach, kidneys, and bladder are normal. There are two umbilical arteries to yield a 3-vessel cord. The cord insertion is normal. IMPRESSION: 1. Single living fetus in vertex presentation. 2. Estimated weight is 215 g +/- 32 g, which correlates with the 66th percentile when 12/18/23 i s used as estimated date of delivery. This date was set by ultrasound on 04/24/2023. 3. Normal anatomic survey. Reviewed, dictated and finalized at location A. IMPRESSION: 1. Single living fetus in vertex presentation. 2. Estimated weight is 215 g +/- 32 g, which correlates with the 66th pe rcentile when 12/18/23 is used as estimated date of delivery. This date was set b y ultrasound on 04/24/2023. 3. Normal anatomic survey.
== END 2023-07-14 15:55 ==
PROVIDERS: PCP Nurse Practitioner Women's Health; Visit Provider Nurse Practitioner Women's Health
DX: Z36.9 Encounter for antenatal screening, unspecified (principal); Z3A.19 19 weeks gestation of pregnancy
CPT/HCPCS: 76805

== ENCOUNTER 2023-09-24 10:26 | Outpatient (RCR) | payer BC, SELFPAY ==
[2023-09-24 11:47] LABS: Hematocrit 34.9 % (37.0-47.0); Hemoglobin 12.1 g/dL (12.0-15.0)
[2023-09-24 12:02] LABS: Glucose 1 Hour PP 50gm Dose 121 mg/dL
[2023-09-24 12:42] LABS: HIV 1/2 Ab P24 Ag Result Negative (Negative)
[2023-09-24 13:05] LABS: Vitamin D 25 Hydroxy 65.2 ng/mL
[2023-09-24 13:15] LABS: Rapid Plasma Reagin Non-Reactive (NonReactive)
[2023-09-25] MEDS: RHO(D) IMMUNE GLOBULIN 300 MCG/2 ML SYRINGE IM (12:35)
== END 2023-12-23 23:59 | disposition home or self-care (01) ==
LOC: ANHLAB 10:26
PROVIDERS: PCP Nurse Practitioner Women's Health; Visit Provider Advanced Practice Midwife
DX: Z11.4 Encounter for screening for human immunodeficiency virus [HIV] (principal); Z11.3 Encounter for screening for infections with a predominantly sexual mode of transmission; Z29.13 Encounter for prophylactic Rho(D) immune globulin; O36.0120 Maternal care for anti-D [Rh] antibodies, second trimester, not applicable or unspecified; E55.9 Vitamin D deficiency, unspecified; Z3A.00 Weeks of gestation of pregnancy not specified
CPT/HCPCS: 36415; 82306; 82947; 85014; 85018; 85461; 86592; 86703; 86850; 86900; 86901; 90384; 96372; G0432; J2790

== ENCOUNTER 2023-09-29 14:17 | Outpatient (CLI) | payer BC, SELFPAY ==
--- NOTE | ~2023-09-29 | US_ITS ---
EXAMINATION: US OB follow up DATE: 09/29/2023 14:37 INDICATION: Size greater than dates . TECHNIQUE: Real-time ultrasound of the pelvis was performed. COMPARISON: 07/14/23, 04/24/23. FINDINGS: There is a single living fetus in vertex presentation, longitudinal lie. The placenta is anterior/ri ght, well distant from the cervix. The cervix is partially obscured by the head but appears to be closed and measures 2.9 cm. heart rate is 138 bpm. The amniotic fluid index is 17.3 cm, whic h is normal (5th to 95th percentile is 9.4 to 22.3 cm). The following biometric data were obtained: Biparietal diameter (BPD): 7.80 cm; head circumference (HC): 27.80 cm; abdominal circumference (AC): 25.63 cm; femur length (FL): 5.72 cm. These measurements are concordant. Estimated weight is 14 98 g +/- 224.64 g, which correlates with the 87.7 percentile when 12/18/2023 is used as estimated date of delivery. As single measurements, these parameters are each equal to the following estimated gestational ages w ith ranges of +/- 2 standard deviations: BPD: 31 weeks 2 days ( 28 weeks 2 days - 34 weeks 3 days). HC: 30 weeks 3 days ( 27 weeks 3 days - 33 weeks 3 days). AC: 29 weeks 6 days ( 27 weeks 4 days - 32 weeks 0 days). FL: 30 weeks 0 days ( 27 weeks 6 days - 32 weeks 0 days). estimated gestational age based solely on measurements from this exam is 30 weeks 3 days +/- 2 weeks 1 days. IMPRESSION: Single living fetus in vertex presentation. Normal amniotic fluid volume. Estimated weight 1490 g +/-224.64 g, which correlates with the 87.7th percentile when 12/18/2023 is used as estimated date of delivery. This date was sent by ultrasound on 04/24/2023. Reviewed, dictated and finalized at location K. IMPRESSION: Single living fetus in vertex presentation. Normal amniotic fluid volume. Estimated weight 1490 g +/-224.64 g, which correlates with the 87.7th per centile when 12/18/2023 is used as estimated date of delivery. This date was sent by ultrasound on 04/24/2023.
== END 2023-09-29 14:18 ==
LOC: MICIMG 14:18
PROVIDERS: PCP Nurse Practitioner Women's Health; Visit Provider Nurse Practitioner Women's Health
DX: O36.63X0 Maternal care for excessive fetal growth, third trimester, not applicable or unspecified (principal); Z3A.30 30 weeks gestation of pregnancy
CPT/HCPCS: 76816

== ENCOUNTER 2023-10-21 11:07 | Outpatient (RCR) | payer BC, SELFPAY ==
--- NOTE | ~2023-10-21 | US_ITS ---
EXAMINATION: US OB follow up DATE: 10/21/2023 13:44 INDICATION: Decreased movements during third trimester of . Assess growth TECHNIQUE: Real-time ultrasound of the pelvis was performed. The interpreting radiologist was not pre sent for the study. COMPARISON: None. FINDINGS: There is a single living fetus in vertex presentation. The placenta is right anterior and not low-ly ing. Normal cervical length of at least 4.8 cm. heart rate is 130 beats per minute (bpm). The a mniotic fluid index is 15.6 cm, which is normal (5th%-95%: 8.8-23.8 cm at the 1 weeks estimated gest ational age). The following biometric data were obtained: BPD: 8.5 cm -> 34 weeks 2 days Head circumference: 30.8 cm -> 34 weeks 3 days Abdominal circumference: 29.1 cm -> 33 weeks 1 days Femur length: 6.6 cm -> 33 weeks 6 days These measurements are concordant. Head circumference to abdominal circumference ratio: 1.06 (normal range 0.95-1.11). Estimated weight: 2229 g (+/-) 334 g or 4 lbs. 15 oz. (+/-) 12 oz. IMPRESSION: 1. Single living fetus in vertex presentation with heart rate of 130 bpm. 2. Normal amniotic fluid index of 15.6 cm. 3. Estimated weight is 92nd percentile by Hadlock criteria when 12/02/2023 is used as the estima alexandro date of delivery (NAZIA). Please correlate with clinical information or earlier ultrasounds for mos t accurate NAZIA. Reviewed, dictated and finalized at location A. IMPRESSION: 1. Single living fetus in vertex presentation with heart rate of 130 bpm. 2. Normal amniotic fluid index of 15.6 cm. 3. Estimated weight is 92nd percentile by Hadlock criteria when 12/02/2023 is used as the estimated date of delivery (NAZIA). Please correlate with clinica l information or earlier ultrasounds for most accurate NAZIA.
[2023-10-21 14:04] VITALS: BP 123/74; PULSE 84
== END 2024-01-19 23:59 | disposition home or self-care (01) ==
LOC: ANHOBOP 11:07
PROVIDERS: PCP Nurse Practitioner Women's Health; Visit Provider Advanced Practice Midwife
DX: O36.8130 Decreased fetal movements, third trimester, not applicable or unspecified (principal); Z3A.32 32 weeks gestation of pregnancy
CPT/HCPCS: 59025; 76816

== ENCOUNTER 2023-12-02 16:07 | Outpatient (CLI) | payer BC, SELFPAY ==
[2023-12-02 16:30] VITALS: BP 128/91; PULSE 77
[2023-12-02 16:35] LABS: Basophils Percent Auto 0.2 % (0.2-1.2); Eosinophils Absolute Auto 0.2 K/mm3 (0-0.3); Eosinophils Percent Auto 1.8 % (0-4.4); Hematocrit 34.3 % (37.0-47.0); Hemoglobin 12.4 g/dL (12.0-15.0); Immature Granulocyte Absolute 0.08 K/mm3 (0.00-0.031); Immature Granulocyte Percent A 0.9 % (0-0.5); Lymphocytes Absolute Auto 1.75 K/mm3 (0.9-3.2); Lymphocytes Percent Auto 20.2 % (18.3-44.2); Mean Corpuscular HGB Conc 36.2 g/dl (32-36); Mean Corpuscular Hemoglobin 32.2 pg (26-34); Mean Corpuscular Volume 89.1 fl (80-100); Mean Platelet Volume 11.4 fl (7.4-10.4); Monocytes Absolute Auto 0.7 K/mm3 (0.1-0.6); Monocytes Percent Auto 8.1 % (2.6-8.5); Neutrophils Percent Auto 68.8 % (45.5-73.1); Platelet Count Result 177 k/mm3 (150-375); Red Blood Count 3.85 M/mm3 (4.2-5.4); Red Cell Distribution Width 12.9 % (11.5-14.5); White Blood Count 8.7 K/mm3 (4.5-10.0)
[2023-12-02 16:41] LABS: Add Urine Microscopic? YES; Appearance Urine Cloudy (Clear); Bacteria Urine 2+ /hpf; Bilirubin Urine Negative (Negative); Blood Urine Negative (Negative); Color Urine Yellow (Yellow); Glucose Urine UA Negative (Negative); Ketones Urine Negative (Negative); Leukocyte Esterase Ur 1+ LEU/UL (Negative); Nitrate Urine Negative (Negative); Non Pathogenic Casts 0-2; Protein Urine Trace mg/dL (Negative); RBC Urine 0-2 /hpf (0-2); Specific Grav Ur 1.021 (1.001-1.035); Squamous Epithelial Cell Urine Many /hpf (Few)
[2023-12-02 16:42] LABS: Total Protein Urine Random 35 mg/dL
[2023-12-02 16:44] LABS: Alanine Aminotransferase 12 U/L (6-35); Albumin Level 3.4 g/dL (3.5-5.1); Alkaline Phosphatase 129 U/L (38-126); Anion Gap 11 mmol/L (4-12); Aspartate Amino Transferase 20 U/L (14-36); Bilirubin,Total 0.3 mg/dL (0.2-1.3); Blood Urea Nitrogen 10 mg/dL (7-17); Calcium 9.4 mg/dL (8.4-10.2); Carbon Dioxide 19 mmol/L (22-30); Chloride 106 mmol/L (98-107); Estimated Glomerular Filt Rate > 60; Glucose 118 mg/dL (65-110); Potassium 3.8 mmol/L (3.4-5.0); Sodium 136 mmol/L (137-145); Uric Acid 5.6 mg/dL (2.5-7.5)
[2023-12-02 16:45] VITALS: BP 125/93; PULSE 77
[2023-12-02 17:00] VITALS: BP 131/84; PULSE 83
[2023-12-02 17:30] VITALS: BMI 33.3
[2023-12-02 17:33] VITALS: BP 128/91; PULSE 88
== END 2023-12-02 17:15 | disposition home or self-care (01) ==
LOC: ANHOBOP 16:13 → ANHOBPP 16:14
PROVIDERS: Advanced Practice Midwife; PCP Nurse Practitioner Women's Health; Visit Provider Obstetrics & Gynecology Gynecology
DX: O13.9 Gestational [pregnancy-induced] hypertension without significant proteinuria, unspecified trimester (principal); Z3A.00 Weeks of gestation of pregnancy not specified
CPT/HCPCS: 36415; 59025; 80053; 81001; 82570; 84156; 84550; 85025; 87086; 87088; 99199

== ENCOUNTER 2023-12-03 17:16 | Outpatient (CLI) | payer BC, SELFPAY ==
[2023-12-03 17:25] VITALS: BMI 33.3
[2023-12-03 18:06] LABS: Collection Time Urine 24 HOURS
[2023-12-03 18:57] LABS: Total Volume 24 Hour Urine 2200 ml
[2023-12-03 19:01] LABS: Total Volume 24 Hour Urine 2200 ml
[2023-12-03 19:10] LABS: Creatinine Clearance Urine 131.6 ml/min (75-125); Creatinine Urine 61.7 mg/dL; Patient Weight 212 Lbs; Total Protein Urine Random 26 mg/dL
[2023-12-03 19:34] LABS: Total Protein Urine 24 Hr 572 mg/24hr (28-141)
== END 2023-12-03 17:17 | disposition home or self-care (01) ==
LOC: ANHOBOP 17:21
PROVIDERS: Visit Provider Obstetrics & Gynecology Gynecology
DX: Z34.90 Encounter for supervision of normal pregnancy, unspecified, unspecified trimester (principal); Z3A.00 Weeks of gestation of pregnancy not specified
CPT/HCPCS: 81050; 82575; 84156

== ENCOUNTER 2023-12-03 18:55 | Inpatient (IN) | payer BC, SELFPAY ==
[2023-12-03] VITALS (56 sets, daily range): BP systolic 107–149; BP diastolic 63–106; PULSE 65–102; TEMP 36.4; O2SAT 96–99; BMI 33.3
[2023-12-03 10:09] LABS: Basophils Percent Auto 0.1 % (0.2-1.2); Eosinophils Absolute Auto 0.1 K/mm3 (0-0.3); Eosinophils Percent Auto 1.3 % (0-4.4); Hematocrit 34.1 % (37.0-47.0); Hemoglobin 12.3 g/dL (12.0-15.0); Immature Granulocyte Absolute 0.08 K/mm3 (0.00-0.031); Immature Granulocyte Percent A 0.9 % (0-0.5); Lymphocytes Absolute Auto 1.53 K/mm3 (0.9-3.2); Lymphocytes Percent Auto 17.8 % (18.3-44.2); Mean Corpuscular HGB Conc 36.1 g/dl (32-36); Mean Corpuscular Hemoglobin 32.3 pg (26-34); Mean Corpuscular Volume 89.5 fl (80-100); Mean Platelet Volume 11.7 fl (7.4-10.4); Monocytes Absolute Auto 0.6 K/mm3 (0.1-0.6); Monocytes Percent Auto 6.4 % (2.6-8.5); Neutrophils Absolute Auto 6.3 K/mm3 (1.3-6.7); Neutrophils Percent Auto 73.5 % (45.5-73.1); Platelet Count Result 164 k/mm3 (150-375); Red Blood Count 3.81 M/mm3 (4.2-5.4); Red Cell Distribution Width 12.8 % (11.5-14.5); White Blood Count 8.6 K/mm3 (4.5-10.0)
[2023-12-03 10:32] LABS: Alanine Aminotransferase 12 U/L (6-35); Albumin Level 3.2 g/dL (3.5-5.1); Alkaline Phosphatase 127 U/L (38-126); Anion Gap 8 mmol/L (4-12); Aspartate Amino Transferase 21 U/L (14-36); Bilirubin,Total 0.5 mg/dL (0.2-1.3); Blood Urea Nitrogen 8 mg/dL (7-17); Calcium 9.3 mg/dL (8.4-10.2); Carbon Dioxide 21 mmol/L (22-30); Chloride 107 mmol/L (98-107); Estimated Glomerular Filt Rate > 60; Glucose 103 mg/dL (65-110); Potassium 3.6 mmol/L (3.4-5.0); Sodium 136 mmol/L (137-145); Uric Acid 5.8 mg/dL (2.5-7.5)
--- NOTE | 2023-12-03 16:18 | WPDOBADMIT ---
Obstetrics - Admit Note Admission Note: record reviewed. No pertinent additions to the history and/or any subsequent changes in the physical findings that are not consistent with the expected course of the were found. Additions to the history and/or subsequent changes in the physical findings follow. Here for elevated BP's and has had 3 with diastolics over 100. Recommend MIL. Cervix 3/50/-2 posterior. Plan Pitocin. Once bed and nursing available will move to labor bed.
[2023-12-03] MEDS: LACTATED RINGERS 1,000 ML 125 ML IV CONT (20:08)
[2023-12-03] MEDS: OXYTOCIN 30 UNITS/NS 500 ML 30 UNITS/500 ML BAG IV CONT (20:08)
[2023-12-03 20:22] LABS: Rapid Plasma Reagin Non-Reactive (NonReactive)
[2023-12-03 20:41] LABS: HIV 1/2 Ab P24 Ag Result Negative (Negative)
--- NOTE | 2023-12-03 22:33 | WPDANESEPP ---
Anes - Eval Pre Procedure Procedure: labor epidural Date/Time: 12/03/23 22:33 Pre Op Diagnosis: [facility] Patient Data Age: 28 Gender: F Height: Weight: Last Vital Signs Temp 36.4 C 12/03/23 20:15 Pulse 79 12/03/23 22:31 BP 138/88 12/03/23 22:31 Allergies Allergy/AdvReac Type Severity Reaction Status Date / Time No Known Allergies Allergy Verified 11/18/23 12:27 Home Medications Medication Instructions Recorded Confirmed Type ergocalciferol (vitamin D2) 1,250 50,000 unit PO WEEKLY 11/19/21 12/03/23 History mcg (50,000 unit) capsule vit no.95-ferrous 1 tablet PO DAILY 11/19/21 12/03/23 History fumarate 28 mg-folic acid 800 mcg tablet () aspirin 81 mg chewable tablet 81 mg PO DAILY 12/03/23 12/03/23 History Laboratory Tests 12/03/23 12/03/23 09:50 19:41 WBC 8.6 K/mm3 (4.5-10.0) RBC 3.81 L M/mm3 (4.2-5.4) Hgb 12.3 g/dL (12.0-15.0) Hct 34.1 L % (37.0-47.0) MCV 89.5 fl (80-100) MCH 32.3 pg (26-34) MCHC 36.1 H g/dl (32-36) RDW 12.8 % (11.5-14.5) Plt Count 164 k/mm3 (150-375) MPV 11.7 H fl (7.4-10.4) Immature Gran % (Auto) 0.9 H % (0-0.5) Neut % (Auto) 73.5 H % (45.5-73.1) Lymph % (Auto) 17.8 L % (18.3-44.2) Kendall % (Auto) 6.4 % (2.6-8.5) Eos % (Auto) 1.3 % (0-4.4) Baso % (Auto) 0.1 L % (0.2-1.2) Lymph # (Auto) 1.53 K/mm3 (0.9-3.2) Kendall # (Auto) 0.6 K/mm3 (0.1-0.6) Eos # (Auto) 0.1 K/mm3 (0-0.3) Baso # (Auto) 0.0 K/mm3 (0.0-0.1) Abs Immat Gran (auto) 0.08 H K/mm3 (0.00-0.031) Absolute Neuts (auto) 6.3 K/mm3 (1.3-6.7) Absolute Nucleated RBC 0.000 K/mm3 (0.0-0.012) Nucleated RBC % 0.0 % (0.0-0.2) Sodium 136 L mmol/L (137-145) Potassium 3.6 mmol/L (3.4-5.0) Chloride 107 mmol/L (98-107) Carbon Dioxide 21 L mmol/L (22-30) Anion Gap 8 mmol/L (4-12) BUN 8 mg/dL (7-17) Creatinine 0.60 L mg/dL (0.7-1.0) Estim Creat Clear Calc Not Reportable Estimated GFR > 60 (59 - ) Glucose 103 mg/dL (65-110) Uric Acid 5.8 mg/dL (2.5-7.5) Calcium 9.3 mg/dL (8.4-10.2) Total Bilirubin 0.5 mg/dL (0.2-1.3) AST 21 U/L (14-36) ALT 12 U/L (6-35) Alkaline Phosphatase 127 H U/L (38-126) Total Protein 6.0 L g/dL (6.3-8.2) Albumin 3.2 L g/dL (3.5-5.1) RPR Non-reactive (NonReactive) HIV 1&2 Ab/P24 Ag 4thGn Negative (Negative) Blood Type O Negative Antibody Screen Positive Antibody Identification Passive Due to RH Imm Glob Antigen Identification Cancelled AVERY, IgG Interpret Neg AVERY, Poly Interpret Not Performed AVERY, Complement Interp Negative Patient hx anesthesia problems: none Family hx anesthesia problems: none Results Review: All pre-operative results and documents have been reviewed as part of the pre-operative evaluation. [facility] Past Medical History Medical History (Updated 12/03/23 @ 22:38 by Lia Luna CRNA) Pre-eclampsia Family History Family History Sibling Type 1 diabetes Grandparent Dementia Social History Social History Smoking status: Never smoker Second hand tobacco smoke exposure: No Substance use: never Do You Feel Safe in your Home?: Yes Lack of Transportation: No Lack of Food: Never True Current Housing: I Have Housing Concerned About Future Housing: No Difficulty Paying Gas/Electric Bills: No Difficulty Paying for Meds: No Currently Unemployed: No Education: Master's Degree or Higher Difficulty w/ Childcare or Family Care: No Spiritual care concerns: No
[2023-12-04] VITALS (171 sets, daily range): BP systolic 100–152; BP diastolic 61–102; PULSE 71–156; RESP 18; TEMP 36.4–37.6; O2SAT 94–100
[2023-12-04] MEDS: LACTATED RINGERS 1,000 ML 125 ML IV CONT ×2 (00:54→08:32)
[2023-12-04] MEDS: ONDANSETRON INJ 4 MG/2 ML VIAL IV PUSH (04:43)
--- NOTE | 2023-12-04 07:35 | PM.OBPNLAB ---
Pain Control Date/time seen: 12/04/[address] Michaels about pt status. Assume care of pt at this time.
--- NOTE | 2023-12-04 07:41 | PM.OBPNLAB ---
Pain Control Date/time seen: 12/04/23 07:25 Pain control: tolerating well and epidural Pelvic Exam Dilation (cm): 6 Effacement (%): 85 station: -2 Amniotic membrane status: Ruptured Contractions Monitor mode: External Contraction frequency: 2 Contraction duration: 60 (60-80) Contraction pattern: Regular Contraction phase: Contraction Contraction intensity: Moderate Status status: Category ll Comments: Reassured by moderate variability and accelerations. Assessment and Plan Assessment: induction ongoing Plan: continuous present management Comments: Anticipate vaginal .
--- NOTE | 2023-12-04 07:43 | PM.OBPNLAB ---
Pain Control Date/time seen: 12/04/23 07:35 Assessment and Plan Comments: Pt denies JACKSON, visual changes, or RUQ pain. Trace BLE edema. No severe features.
--- NOTE | 2023-12-04 11:01 | PM.OBPRVD ---
OB - Vaginal Delivery Note Procedure Delivery date: 12/04/23 Events: Preeclampsia w/o severe features Induction method: Per Pitocin Protocol Delivery augmentation: Rupture of Membranes Delivery monitor: External FHT and Internal Uterine Route of delivery: Episiotomy description: None Laceration Description: None Specimen: Yes Quantitative Blood Loss (ml): 125 Anesthesia type: Epidural Disposition: Floor Complications: No immediate complications Narrative: Patient arrived for induction labor secondary to preeclampsia. Pitocin was started and she made change to complete dilation. she did receive an epidural for analgesia during labor. She pushed well with contractions and delivered the head in the ROP position. There was good restitution an easy delivery of the remainder of the . The infant was placed on the maternal abdomen and dried and stimulated by the nursery staff. After 1 minute of life, the cord was doubly clamped and cut. Cord blood, cord gases, and cord segment were obtained. The placenta delivered spontaneously in the Kohli presentation. The perineum and vaginal vault were inspected and found to be intact. A small amount of trickling was noted from the vagina and bimanual exam was performed. Approximately 40 mL of small nickel sized clots and red blood were removed from the uterus. After this time, there was excellent uterine tone and hemostasis. All delivery counts correct. Mother and baby to skin the skin in the delivery room. Baby Date of : 12/04/23 Time of : 10:40 Gestational Age by Date: 38 Infant gender: Female Weight (pounds): 0 (unavailable at the time of note) presentation: vertex position: Left Occiput Posterior Placenta delivery description: Spontaneous (Kohli presentation) Cord Vessel Description: 3 Vessels score one minute: 8 score five minutes: 9
[2023-12-04] MEDS: OXYTOCIN 30 UNITS/NS 500 ML 30 UNITS/500 ML BAG 125 UNITS IV CONT (11:04)
[2023-12-04] MEDS: ceFAZolin 2 GM/D5W 50 ML 2 GM/50 ML BAG IVPB (11:04)
--- NOTE | 2023-12-04 11:06 | PM.OBDSVD ---
DS: Admitting Diagnosis Discharge Date 12/06/2023 <Camilo Nieves MD - Last Filed: 12/06/23 09:30> Admitting Diagnosis 28 y.o. at 38 5/7 weeks Rh negative Preeclampsia <Lou Schwab CNM - Last Filed: 12/04/23 11:10> DS: Discharge Diagnosis Discharge Diagnosis (1) Pre-eclampsia: Qualifiers: Trimester: third trimester Qualified Code(s): O14.93 - Unspecified pre-eclampsia, third trimester <Lou Schwab CNM - Last Filed: 12/04/23 11:10> Code(s): O14.90 - Unspecified pre-eclampsia, unspecified trimester <Lou Schwab CNM - Last Filed: 12/04/23 11:10> Status: Acute <Lou Schwab CNM - Last Filed: 12/04/23 11:10> (2) (normal spontaneous vaginal delivery): Code(s): O80 - Encounter for full-term uncomplicated delivery <Lou Schwab CNM - Last Filed: 12/04/23 11:10> Status: Acute <Lou Schwab CNM - Last Filed: 12/04/23 11:10> (3) Mother currently breastfeeds: Status: Acute <Lou Schwab CNM - Last Filed: 12/04/23 11:10> OB - DS: Summary Hospital Course Hospital Course: Uncomplicated <Lou Schwab CNM - Last Filed: 12/04/23 11:10> OB Procedures : Ultrasound <Lou Schwab CNM - Last Filed: 12/04/23 11:10> OB Procedures Intrapartum: Spontaneous Vag Delivery <Lou Schwab CNM - Last Filed: 12/04/23 11:10> OB Procedures: : None <Camilo Nieves MD - Last Filed: 12/06/23 09:30> Peripartum Data Delivery Method: Natural Vaginal <Lou Schwab CNM - Last Filed: 12/04/23 11:10> Laceration Description: None <Lou Schwab CNM - Last Filed: 12/04/23 11:10> Episiotomy description: None <Lou Schwab CNM - Last Filed: 12/04/23 11:10> complications: none <Lou Schwab CNM - Last Filed: 12/04/23 11:10> Time Spent with Patient Time attestation: Total time spent providing and/or coordinating discharge services: <Lou Schwab CNM - Last Filed: 12/04/23 11:10> DS: Data Data Completed and Pending Labs on day of discharge: Labs from last 24 hours 12/03/23 19:41 RPR Non-reactive HIV 1&2 Ab/P24 Ag 4thGn Negative Blood Type O Negative Antibody Screen Positive Antibody Identification Passive Due to RH Imm Glob Antigen Identification Cancelled AVERY, IgG Interpret Neg AVERY, Poly Interpret Not Performed AVERY, Complement Interp Negative <Lou Schwab CNM - Last Filed: 12/04/23 11:10> Discharge Plan Discharge Attending physician on discharge: Nuvia Michaels <Lou Schwab CNM - Last Filed: 12/04/23 11:10> Nuvia Michaels <Camilo Nieves MD - Last Filed: 12/06/23 09:30> Discharging Clinician: Lou Schwba <Lou Schwab CNM - Last Filed: 12/04/23 11:10> Lou Schwab <Camilo Nieves MD - Last Filed: 12/06/23 09:30> Patient Disposition: Home, Self-Care <Lou Schwab CNM - Last Filed: 12/04/23 11:10> Activity: may shower and pelvic rest <Lou Schwab CNM - Last Filed: 12/04/23 11:10> may shower and pelvic rest <Camilo Nieves MD - Last Filed: 12/06/23 09:30> Diet: as tolerated and regular <Lou Schwab CNM - Last Filed: 12/04/23 11:10> as tolerated and regular <Camilo Nieves MD - Last Filed: 12/06/23 09:30> Wound Care Instructions: follow printed instructions <Lou Schwab CNM - Last Filed: 12/04/23 11:10> follow printed instructions <Camilo Nieves MD - Last Filed: 12/06/23 09:30> Discharge Instructions: Continue taking your vitamin and any other supplements as previously directed (Examples: Iron, Vitamin D). You may take Tylenol 1000mg over the counter every 6 hours as needed for pain. Do not exceed 4000mg of Tylenol daily. You may continue using tucks pad
[2023-12-04] MEDS: WITCH HAZEL 40 PADS 1 PAD TOPICAL (11:18)
[2023-12-04] MEDS: ACETAMINOPHEN 325 MG TABLET 650 MG PO ×2 (11:18→17:23)
[2023-12-04] MEDS: miSOPROStol 200 MCG TABLET 800 MCG RECTAL (11:18)
[2023-12-04] MEDS: BENZOCAINE 20% AER SPR (*SP) 56 GM CAN 1 SPRAY TOPICAL (11:18)
--- NOTE | 2023-12-04 13:25 | PC.NURSE ---
Patient transferred to post room #278 via wheelchair. Support person present and family . PT Oriented to unit, room, information board, rooming in, admission packet and security measures. Patient verbalizes understanding. PT introductions made and plan of care discussed per post , pain management, breast feeding and daily care activities. No barriers to learning identified at this time. PT received such instructions per one to one discussion, mom baby care guide and demonstrations. PT verbalized understanding of such care.
[2023-12-04] MEDS: IBUPROFEN 600 MG TABLET PO (13:56)
--- NOTE | 2023-12-04 16:42 | PC.NURSE ---
1530. Introductions were made, then consulted with patient to assess needs related to . Mom explains her desire to exclusively BF her baby but she explains she had difficulty with her first and had to supplement with formula after a few months of . She explained her first baby spent some time the nicu. Encouraged understanding of the benefits of skin to skin uriel in the first 24 hrs of babies life, changing positions to encourage wakefulness, how to watch for early feeding cues, feeding on demand (aiming for 8-12 times in 24 hours, about every 2-3 hours), milk production, building/maintaining a milk supply, duration of feeding, signs of adequate intake/output and how to record on the feeding sheet. Baby is sleeping and being held by family visitor at this time. Mom encouraged to call when she feeds next to check her latch positioning and alignment. Reviewed comfort measures of healing with a warm, wet washcloth to rinse breast, then leave open to air-dry, good handwashing when or touching the breast/nipples to prevent infection. Mother voiced understanding of skin to skin, stimulating with massage touch, responsive feedings, hand expressed colostrum, talking to infant to encourage if it has been 2 -2.5 hours since the start of the last , to call if does not latch, or if there is discomfort with . Resources used for education were facilitated with the mom and baby guide. Parents voiced understanding of information, demonstrated learning and will call if there is a request for assistance. Reported to the Primary RN.
[2023-12-04] MEDS: DOCUSATE SODIUM 100 MG CAPSULE PO (17:23)
[2023-12-04] MEDS: POLYSACCHARIDE IRON COMPLEX 150 MG CAPSULE PO (17:24)
[2023-12-05 04:38] VITALS: BP 134/89; PULSE 75; RESP 18; TEMP 36.6
[2023-12-05 04:50] LABS: Hematocrit 33.3 % (37.0-47.0); Hemoglobin 11.9 g/dL (12.0-15.0)
--- NOTE | 2023-12-05 06:56 | PM.OBPNVD ---
OB - PN: Subj Subjective Date/time seen: 12/05/23 06:56 Patient comments: no complaints and pain well controlled baby status: doing well OB - PN: Obj Data Labs 12/05/23 04:37 12/03/23 09:50 Labs: Laboratory Results - last 24 hr 12/05/23 04:37 Hgb 11.9 L Hct 33.3 L Blood Type O Negative Antibody Screen TNP OB - PN A/P Plan day: 1 Plan: routine care, discharge home and follow up 6 weeks Time Spent With Patient Time: Total time spent is greater than 50% in coordination of care (as documented) at patient's floor/unit and/or counseling patient: Time with patient: less than 15 minutes Exam Const: General: cooperative, healthy appearing and comfortable Nutritional Appearance: average body habitus Orientation/consciousness: oriented to person, oriented to place and oriented to time Resp: Effort & Inspection: normal respiratory effort Cardio: Rate: regular rate Rhythm: regular rhythm Heart sounds: S1 normal heart sound present and S2 normal heart sound present GI: Inspection: normal to inspection
[2023-12-05] MEDS: MULTIVIT/MIN/PREN/FOL AC/IRON TABLET 1 TAB PO (08:21)
[2023-12-05] MEDS: DOCUSATE SODIUM 100 MG CAPSULE PO (08:24)
[2023-12-05] MEDS: ACETAMINOPHEN 325 MG TABLET 650 MG PO (08:24)
[2023-12-05 08:25] VITALS: BP 137/94; PULSE 88; RESP 16; TEMP 36.7; O2SAT 97
--- NOTE | 2023-12-05 11:30 | PC.NURSE ---
Consulted with mother concerning needs and she shared her ability to independently latch infant optimally without pain. Mother is feeding appropriately for growth of and understands stimulating to eat if needed. Infant has had appropriate feedings in the last 24 hours meets the outcomes for weight, output, blood sugar and jaundice at this time. Reinforced understanding of milk production, transition of milk, signs of adequate intake, transition of stool, prevention/relief of engorgement, plugged ducts, mastitis, responsive watching for feeding cues, the different methods of stimulating to breastfeed 1-3 hours after the start of the last feeding, community resources, and when to call a provider using the resource of the feeding sheet along with the mom and baby guide. Mother voiced understanding of the information shared, is confident to continue effectively her infant at home, when to call for assistance, denies any additional assistance or education at this time. Reported to the Primary RN.
[2023-12-05 12:00] VITALS: BP 130/96; PULSE 87
[2023-12-05] MEDS: RHO(D) IMMUNE GLOBULIN 300 MCG/2 ML SYRINGE IM (12:39)
[2023-12-05 16:00] VITALS: BP 151/97; PULSE 88; O2SAT 99
--- NOTE | 2023-12-05 16:10 | PC.NURSE ---
Mother verbalizes she is able to independently latch with appropriate positioning and alignment. She has some nipple discomfort and is responsively . We worked on a deeper latch, recognizing if infants lips are rolled in, and how to see if her nipple is smashed after feedings. Recommended rotating positions and trying football position. is currently meeting outcomes for weight, output, jaundice, blood sugar and feeding frequencies of 8-12 times in 24 hours. We reviewed nipple care and good hand hygiene. Mother declines any additional assistance or education at this time. Mother is encouraged to call for assistance if her infant doesn?t latch, pain with latching, questions or concerns. Mother voiced understanding of information shared along with the mom/baby guide for an additional resource. Reported to the Primary RN.
[2023-12-05 18:40] VITALS: BP 142/93; PULSE 82; RESP 18; TEMP 36.7
[2023-12-06] VITALS: BP 150/90
[2023-12-06 04:00] VITALS: BP 136/86; PULSE 75
[2023-12-06] MEDS: IBUPROFEN 600 MG TABLET PO (04:10)
[2023-12-06 07:52] VITALS: BP 132/86; PULSE 80; RESP 18; TEMP 36.6; O2SAT 100
[2023-12-06] MEDS: DOCUSATE SODIUM 100 MG CAPSULE PO (09:11)
[2023-12-06] MEDS: MULTIVIT/MIN/PREN/FOL AC/IRON TABLET 1 TAB PO (09:11)
--- NOTE | 2023-12-06 09:39 | PC.NURSE ---
Patient viewed the discharge video Mother & Baby Care, The First Two Weeks . Patient was given the opportunity and encouraged to ask questions. Patient verbalized understanding of information shared and has been given the mother/baby guide for home reference.
[2023-12-07 09:26] VITALS: BP 132/87; PULSE 89; RESP 18; TEMP 36.7; O2SAT 99
== END 2023-12-06 11:35 | disposition home or self-care (01) | DRG 807 ==
LOC: ANHOBOP 19:20 → ANHLDR 19:20 → ANHOB2 12-04 13:31
PROVIDERS: Advanced Practice Midwife; Admitting Provider Obstetrics & Gynecology Gynecology; Visit Provider Obstetrics & Gynecology Gynecology
DX: O14.04 Mild to moderate pre-eclampsia, complicating childbirth (principal); Z37.0 Single live birth; Z3A.38 38 weeks gestation of pregnancy; O69.81X0 Labor and delivery complicated by cord around neck, without compression, not applicable or unspecified
CPT/HCPCS: 36415; 80053; 81050; 82575; 84156; 84550; 85014; 85018; 85025; 85461; 86592; 86703; 86850; 86880; 86900; 86901; 88307; 90384; 99199; A9270; G0432; J0690; J2405; J2590; J2790; J2795; J7120